=== PATIENT | female | born 1955 | race Caucasian/White ===

== ENCOUNTER 2023-03-05 14:53 | Outpatient (OUT) | payer MEDICARE, MEDICAID, SELFPAY ==
[2023-03-05 16:01] LABS: Thyroid Stimulating Hormone 1.677 uIU/mL (0.358-3.740)
[2023-03-09 06:07] LABS: Methylmalonic Acid, Serum 276 nmol/L (0-378)
== END 2023-03-05 14:54 ==
LOC: LAB 14:58
PROVIDERS: PCP Internal Medicine
DX: R41.3 Other amnesia (principal)
CPT/HCPCS: 36415; 82607; 82746; 83921; 84443

== ENCOUNTER 2025-02-25 09:22 | Emergency (ER) | payer MEDICARE, MEDICAID, SELFPAY ==
--- OUTSIDE RECORDS SUMMARY | 2024-12-01 08:45 | XMS_ITS ---
Author Organization [facility] vices Address [address] [place] [phone] Care Team Providers Care Gas Worker Name Role Phone Liliana Dominguez Primary Care Provider [phone] Brynn Hunter [phone] REASON FOR VISIT Rest #29-DO, #30-MO Social History Sex Assigned At : Social History Observation Description Sex Assigned At Female Encounters Encounter Location Date Provider Diagnosis [facility] [address] [place] [id number] 12/01/2024 Brynn Hunter Plan Of Treatment Next Appt Details Provider Name:Annie gray, 05/11/2025 12:45:00 PM, [address] [place] [address], [phone], Progress Notes * Shanda BUSBY ADOB:[birth year] (69 yo F)Acc No.[id number]:12/01/2024 Patient: Stuart HURLEY Shanda Martin Provider: Winnie Hunter DDS :1955 A ge:69 Y S ex:Female Date:12/01/2024 Address:[address] [place], [place] [phone] Pcp:Liliana Dominguez Subjective: * Chief Complaints: * 1 . Rest #29-DO, #30-MO. * Medical History: Objective: * Vitals: Assessment: Plan: * Treatment: * Billing Information: * Visit Code: * Procedure Codes: * Electronic signature of Bull Hunter DDS on 02/25/2025 at 09:36 AM EDT Sign off status: Pending * Provider: Winnie Hunter DDS Date: 0 12/01/2024 Generated for Willa ruiz/Melanie/Darling on: 0 02/25/2025 09:36 AM EDT
--- OUTSIDE RECORDS SUMMARY | 2024-12-08 08:45 | XMS_ITS ---
Author Organization [facility] vices Address [address] [place] [phone] Care Team Providers Care It Technician Name Role Phone Liliana Dominguez Primary Care Provider [phone] Annie Degroot [phone] REASON FOR VISIT CANC Rest # 20-DO, 18-MOL Social History Sex Assigned At : Social History Observation Description Sex Assigned At Female Encounters Encounter Location Date Provider Diagnosis [facility] [address] [place] [phone] 12/08/2024 Annie Sanchez Plan Of Treatment Next Appt Details Provider Name:Annie gray, 05/11/2025 12:45:00 PM, [address] [place] [address], [phone], Progress Notes * Shanda BUSBY ADOB:[birth year] (69 yo F)Acc No.[id number]:12/08/2024 Patient: Stuart Shanda HURLEY Provider: Dean Sanchez DDS :1955 A ge:69 Y S ex:Female Date:12/08/2024 Address:[address] [place], [place] [phone] Pcp:Liliana Dominguez Subjective: * Chief Complaints: * 1 . CANC Rest # 20-DO, 18-MOL. * Medical History: Objective: * Vitals: Assessment: Plan: * Treatment: * Billing Information: * Visit Code: * Procedure Codes: * Electronic signature of Sarah Beth Sanchez DDS on 02/25/2025 at 09:36 AM EDT Sign off status: Pending * Provider: Dean Sanchez DDS Date: 0 12/08/2024 Generated for Willa Teran/Darling on: 0 02/25/2025 09:36 AM EDT
[2025-02-25 09:31] VITALS: BP 176/99; PULSE 62; TEMP 36.9; O2SAT 99; BMI 40.0
--- OUTSIDE RECORDS SUMMARY | 2025-02-25 09:37 | XMS_ITS | Patient Health Record ---
Author Organization [facility] Address [address] [place] [phone] Care Team Providers Care Manager Lean Name Role Phone AN SWANSON Unavailable [phone] Allergies Allergen (clinical drug ingredient) Drug/Non Drug Allergy documented on EMR Reaction Allergy Type Onset Date Status cimetidine Tagamet HB Unknown Drug Allergy Activ e Morphine and Related Unknown Drug Allergy Active Penicillin Unknown Drug Allergy Active Product containing tetracycline structure (product) Tetracyclines & Related Unknown Drug Allergy Acti ve Reason For Referral No Information Problems Problem Type SNOMED Code ICD Code Onset Dates Problem Status W/U Status Risk Notes Problem Chronic obstructive pulmonary disease (81010517) Chronic obstructive pulmonary disease, unspecified (J44.9) Active confirmed Problem Obstructive sleep apnea (82549099) Obstructive sleep apnea (G47.33) Active confirmed Problem Asthma (469841504) Asthma (J45.909) Active confirmed Plan Of Treatment No Information Insurance Providers Payer Name Payer Address Payer Phone Subscriber Number Group Number Insured Name Patient Relationship to Insured Coverage Start Date Coverage End Date [facility] Dual Complete [address] [place] [phone] [id number] Shanda Holm Self - patient is the insured Medicaid [place] [address] [phone] [id number] Shanda Holm Self - patient is the insured Medical (General) History Medical History History ICD Code Chronic obstructive pulmonary disease, u nspecified J44.9 Obstructive sleep apnea G47.33 Asthma J45.909 Unilateral primary osteoarthritis, right hip M16.11 Presence of right artificial hip joint Z 96.641 Encounter for other specified surgical a ftercare Z48.89 Surgical History Surgery Date(Month/Year) Right hip revision Hospitalization History Reason Date(Month/Year) Reviewed
--- NOTE | 2025-02-25 09:38 | PC.NURSE ---
Pain to right knee, no injury, no redness or bruising, slight swelling to area.
[2025-02-25] MEDS: ORPHENADRINE 60 MG/2 ML VIAL IM (10:07)
[2025-02-25] MEDS: KETOROLAC TROMETHAMINE 30 MG/ML VIAL IM (10:07)
--- NOTE | 2025-02-25 10:17 | ED.LOWEXI1 ---
HPI HPI - Extremity Injury (Lower) General Chief Complaint: Extremity Injury, Lower Stated Complaint: R KNEE PAIN Time Seen by Provider: 02/25/25 09:24 Source: patient Mode of arrival: walk-in History of Present Illness HPI Narrative: The patient came to the ER with a right knee pain that got worse over the last 24 hours, she initially had a history of left knee osteoarthritis and she was refusing surgery, the patient is coming with this right knee pain with no preceding fall or trauma but she has not been able to ambulate because of the pain and she has been using a wheelchair that she have at home The patient denies any other injuries or pain Related Data Home Medications ?Medication ?Instructions ?Recorded ?Confirmed albuterol sulfate 90 mcg/actuation 2 inh inhalation Q6H PRN shortness 02/25/25 02/25/25 aerosol inhaler of breath or wheezing atorvastatin 10 mg tablet 10 mg PO DAILY 02/25/25 02/25/25 fluoxetine 10 mg capsule 10 mg PO DAILY 02/25/25 02/25/25 fluoxetine 20 mg capsule 20 mg PO DAILY 02/25/25 02/25/25 furosemide 20 mg tablet 20 mg PO DAILY 02/25/25 02/25/25 glipizide 10 mg tablet, extended 10 mg PO DAILY 02/25/25 02/25/25 release 24 hr lamotrigine 150 mg tablet 150 mg PO DAILY 02/25/25 02/25/25 metformin 500 mg tablet,extended 500 mg PO BID 02/25/25 02/25/25 release 24 hr Previous Rx's ?Medication ?Instructions ?Recorded diclofenac sodium 50 mg 50 mg PO Q12H PRN pain #20 tabs 02/25/25 tablet,delayed release orphenadrine citrate 100 mg 100 mg PO BID PRN muscle spasm #20 02/25/25 tablet,extended release tabs Allergies Allergy/AdvReac Type Severity Reaction Status Date / Time morphine Allergy Anaphylaxis Verified 02/25/25 09:30 Penicillins Allergy Rash Verified 02/25/25 09:30 tetracycline Allergy Rash Verified 02/25/25 09:30 cimetidine (From Tagamet) AdvReac Chest Pain Verified 02/25/25 09:30 lisinopril AdvReac Cough Verified 02/25/25 09:30 Opioid HPI Opioid Management Most Recent Pain and Opioid Data: Last ED Pain Assessment Today, 10:50 Review of Systems ROS Status of ROS 10 or more systems reviewed and unremarkable except as noted in history and below PFSH PFSH Social History Little interest or pleasure in doing things: not at all Feeling down, depressed, or hopeless: not at all Exam Narrative Exam Narrative: Nurses notes and vital signs reviewed and patient is not hypoxic. General: Well-appearing and in no apparent distress. Skin: Warm, dry, no pallor noted. No rash. Head: Normocephalic, atraumatic. Right lower extremity examination: The patient have a tenderness upon palpation of the anterior patellar area in addition to no ecchymosis and mild effusion and the patient have her right knee in a position of hip abduction and external rotation of the hip as well with limitation of movement of the knee due to pain the patient is not able to flex or extend her knee The patient anterior tibial pulse is normal in the right side Left lower extremity examination shows no acute pathology and no vascular injury detected Constitutional Vital Signs, click to edit/add: Last Vital Signs Temp 98.4 F 02/25/25 09:31 Pulse 62 02/25/25 09:31 Resp 20 02/25/25 09:31 BP 176/99 H 02/25/25 09:31 Pulse Ox 99 02/25/25 09:31 O2 Del Method Room Air 02/25/25 09:31 Course Vital Signs Vital signs: Vital Signs Temperature 98.4 F 02/25/25 09:31 Pulse Rate 62 02/25/25 09:31 Respiratory Rate 20 02/25/25 09:31 Blood Pressure 176/99 H 02/25/25 09:31 Pulse Oximetry 99 02/25/25 09:31 Oxygen Delivery Method Room Air 02/25/25 09:31 Temperature 98.4 F 02/25/25 09:31 Pulse Rate 62 02/25/25 09:31 Respiratory Rate 20 02/25/25 09:31 Blood Pressure 176/99 H 02/25/25 09:31 Pulse Oximetry 99 02/25/25 09:31 Oxygen Delivery Method Room Air 02/25/25 09:31 MDM - Extremity Injury (Lower) MDM Narrative Medical decision making narrative: The patient x-ray of the hip and pelvis showed no acute pathology X-ray of the right knee also showed no acute pathology and the prelim reading Patient was feeling much better after being treated with Toradol and Norflex in the ER he was able to ambulate The patient provided with the Voltaren and Norflex to go home The patient is to follow up with primary care physician in next 2-3 days or to return to the emergency department should any of the signs or symptoms worsen or new symptoms develop. The patient agrees with the following Diagnosis and Treatment plan and the patient will be discharged home. Discharge Plan Discharge Chief Complaint: Extremity Injury, Lower Clinical Impression: Acute knee pain Patient Disposition: Home, Self-Care Time of Disposition Decision: 12:03 Condition: Good Prescriptions / Home Meds: New diclofenac sodium 50 mg tablet,delayed release (DR/EC) 50 mg PO Q12H PRN (Reason: pain) Qty: 20 0RF orphenadrine citrate 100 mg tablet extended release 100 mg PO BID PRN (Reason: muscle spasm) Qty: 20 0RF No Action albuterol sulfate 90 mcg/actuation HFA aerosol inhaler 2 inh INHALATION Q6H PRN (Reason: shortness of breath or wheezing) atorvastatin 10 mg tablet 10 mg PO DAILY fluoxetine 20 mg capsule 20 mg PO DAILY Rx Instructions: takes with 10 mg to equal 30 mg daily fluoxetine 10 mg capsule 10 mg PO DAILY Rx Instructions: Takes with 20 mg to equal 30 mg daily furosemide 20 mg tablet 20 mg PO DAILY glipizide 10 mg tablet extended release 24hr 10 mg PO DAILY lamotrigine 150 mg tablet 150 mg PO DAILY metformin 500 mg tablet extended release 24 hr 500 mg PO BID Print Language: Kyrgyz Instructions: Knee Pain (ED) Referrals: LOU TUBBS [Primary Care Provider, Unknown] - 1 week Discharge Date/Time: 02/25/25 12:20
== END 2025-02-25 12:20 | disposition home or self-care (01) ==
PROVIDERS: Emergency Provider Emergency Medicine; PCP Nurse Practitioner
DX: M25.561 Pain in right knee (principal); M25.461 Effusion, right knee; M17.11 Unilateral primary osteoarthritis, right knee
CPT/HCPCS: 73502; 73562; 96372; 99285; J1885; J2360